=== PATIENT | female | born 1950 | race Caucasian/White ===

== ENCOUNTER → 2020-08-10 | Outpatient (CLI) | payer MEDICARE, OTHER ==
[~2020-08-10] MED LIST: AZELASTINE205.5 MCG/ NS; Advair Hfa 230-12 GM; Amlodipine Bes2.5 MG PO; BENADRYL25 MG PO; CELE200 PO; CITA20 PO; COMBIVENT RESPIM4 GM; FLONASE ALLERG9.9 ML; Hydrocodone-Ap1 EA23 PO; LOSARTAN-HCTZ1 EACH; METCAR500 PO; OMEP10ER PO; Prilosec Otc20 MG PO; Vitamin B Comple1 EA PO
[2020-08-12 14:07] LABS: CORONAVIRUS (COVID19) CSH-NRL Negative (Negative)
== END ==
LOC: LAB 13:33 → LAB SHORT 13:33
PROVIDERS: Nurse Practitioner Family
DX: J06.9 Acute upper respiratory infection, unspecified (principal); Z20.828 Contact with and (suspected) exposure to other viral communicable diseases
CPT/HCPCS: U0003

== ENCOUNTER → 2021-01-28 | Outpatient (CLI) | payer MEDICARE, OTHER ==
[~2021-01-28] MED LIST changes: +COMBIVENT RESPIM4 G1 INH; +HYDR1TAB94 PO; -LOSARTAN-HCTZ1 EACH; +LOSARTAN-HCTZ1 EACH PO; +TIZA4 PO
[2021-01-29 06:52] LABS: Stool Occult Bld Immuno 1 Positive (NEGATIVE)
== END | disposition home or self-care (01) ==
LOC: LAB 10:45 → LAB SHORT 10:45
PROVIDERS: Internal Medicine
DX: D64.9 Anemia, unspecified (principal)
CPT/HCPCS: 82274

== ENCOUNTER 2021-03-09 07:48 | Day surgery (SDC) | payer MEDICARE, OTHER ==
[~2021-03-09] VITALS: Ht 162.6 cm; Wt 91.5 kg
[~2021-03-09 07:48] MED LIST changes: -COMBIVENT RESPIM4 G1 INH; -HYDR1TAB94 PO; -TIZA4 PO
[2021-03-09] MEDS ORDERED: COMBIVENT RESPIM4 G1 INH (08:29)
[2021-03-09] MEDS ORDERED: TIZA4 PO (08:30)
[2021-03-09] MEDS ORDERED: HYDR1TAB94 PO (08:32)
--- NOTE | 2021-03-09 08:59 | NUR ---
03/09/21 0859 Meeta Ramirezfestus Smith VERBALIZES NO PAIN WITH NO MOVEMENT BUT HAS ARTHRITIS ALL OVER & JUST HAD HIP SURGERY IN 2020.
== END 2021-03-09 10:10 | disposition home or self-care (01) ==
LOC: ORSCSDS 07:48
PROVIDERS: Internal Medicine Gastroenterology
PROC: 0DJD8ZZ Inspection of Lower Intestinal Tract, Via Natural or Artificial Opening Endoscopic (ICD-10-PCS; principal; 2021-03-09 09:00)
PROC: 0DB78ZX Excision of Stomach, Pylorus, Via Natural or Artificial Opening Endoscopic, Diagnostic (ICD-10-PCS; principal; 2021-03-09 09:00)
DX: D50.9 Iron deficiency anemia, unspecified (principal); K21.9 Gastro-esophageal reflux disease without esophagitis; Z98.84 Bariatric surgery status; K44.9 Diaphragmatic hernia without obstruction or gangrene; K57.30 Diverticulosis of large intestine without perforation or abscess without bleeding; K64.1 Second degree hemorrhoids; I10 Essential (primary) hypertension; J45.909 Unspecified asthma, uncomplicated; Z79.899 Other long term (current) drug therapy
CPT/HCPCS: 88305; 88342; J2704; J7120

== ENCOUNTER → 2024-08-20 | Outpatient (CLI) | payer MEDICARE, OTHER ==
[~2024-08-20] MED LIST changes: +COMBIVENT RESPIM4 G1 INH; +HYDR1TAB94 PO; +TIZA4 PO
== END | disposition home or self-care (01) ==
LOC: LAB SHORT 14:08 → LAB 14:08
DX: N39.0 Urinary tract infection, site not specified (principal)
CPT/HCPCS: 87086

== ENCOUNTER 2024-09-30 11:30 | Day surgery (SDC) | payer MEDICARE, OTHER ==
[~2024-09-30] VITALS: Ht 162.6 cm; Wt 93.7 kg
[~2024-09-30 11:30] MED LIST changes: +Balanced Salt Epinephrine Irrigation Solution 500 mL IR SCH; +Lidocaine HCl/Pf 1% 5 ML VIAL XX SCH; +Moxifloxacin HCL 0.5 MG/0.1 ML 0.4MLSYR LEFTEYE SCH; +PHENYLEPHRINE\\TROPICAMIDE\\TETRACAINE OPHTHALMIC DILATING SOLN LEFTEYE PRN; +Povidone-Iodine 450 DROP/30 ML Solution LEFTEYE SCH; +Povidone-Iodine 450 DROP/30 ML Solution ONE; +Tetracaine HCl/Pf 0.5% Opth Soln 4 ml ONE
[2024-09-30] MEDS ORDERED: Diazepam 5 MG Tab ONE (11:44)
[2024-09-30] MEDS ORDERED: Diazepam 2 MG Tab ONE (11:44)
--- NOTE | 2024-09-30 12:08 | NUR ---
09/30/24 1208 Dora Jalloh CALL LIGHT WITHIN REACH. TETRACAINE LEFT EYE AT 1157 AND PLEDGET IN AT 1158. VALIUM 7MG PO GIVEN TO PATIEN AT 1158. PT IS NOW IN CONTINOUS PULSE OXIMETER FOR CLOSER OBSERVATION.
[2024-09-30 13:21] VITALS: BP 131/83
--- NOTE | 2024-09-30 13:38 | NUR ---
09/30/24 1338 NIALL HAIRSTON RN, PARTICIPATED IN PT CARE.
== END 2024-09-30 13:35 | disposition home or self-care (01) ==
LOC: ORSCSDS 11:30
PROVIDERS: Student in an Organized Health Care Education/Training Program
PROC: 08RK3JZ Replacement of Left Lens with Synthetic Substitute, Percutaneous Approach (ICD-10-PCS; principal; 2024-09-30 13:00)
DX: E11.36 Type 2 diabetes mellitus with diabetic cataract (principal); H25.813 Combined forms of age-related cataract, bilateral; H35.3130 Nonexudative age-related macular degeneration, bilateral, stage unspecified; E11.319 Type 2 diabetes mellitus with unspecified diabetic retinopathy without macular edema; I10 Essential (primary) hypertension; E78.00 Pure hypercholesterolemia, unspecified; G47.33 Obstructive sleep apnea (adult) (pediatric); Z79.899 Other long term (current) drug therapy
CPT/HCPCS: A9270; V2632

== ENCOUNTER 2024-10-07 11:43 | Day surgery (SDC) | payer MEDICARE, OTHER ==
[~2024-10-07] VITALS: Ht 162.6 cm; Wt 94.4 kg
[~2024-10-07 11:43] MED LIST changes: -Moxifloxacin HCL 0.5 MG/0.1 ML 0.4MLSYR LEFTEYE SCH; +Moxifloxacin HCL 0.5 MG/0.1 ML 0.4MLSYR RIGHTEYE SCH; -PHENYLEPHRINE\\TROPICAMIDE\\TETRACAINE OPHTHALMIC DILATING SOLN LEFTEYE PRN; +PHENYLEPHRINE\\TROPICAMIDE\\TETRACAINE OPHTHALMIC DILATING SOLN RIGHTEYE PRN; -Povidone-Iodine 450 DROP/30 ML Solution LEFTEYE SCH; +Povidone-Iodine 450 DROP/30 ML Solution RIGHTEYE SCH
[2024-10-07] MEDS ORDERED: Diazepam 2 MG Tab ONE (11:47)
[2024-10-07] MEDS ORDERED: Diazepam 5 MG Tab ONE (11:48)
[2024-10-07] MEDS ORDERED: SERT100 PO (12:07)
[2024-10-07] MEDS ORDERED: ROSUVASTATIN CAL5 MG PO (12:08)
[2024-10-07] MEDS ORDERED: Feosol45 MG (12:08)
[2024-10-07] MEDS ORDERED: Pepcid40 MG (12:09)
--- NOTE | 2024-10-07 12:48 | NUR ---
10/07/24 1248 Sally Gilliland ANXIETY ASSESSED .
[2024-10-07 13:19] VITALS: BP 124/78
== END 2024-10-07 13:21 | disposition home or self-care (01) ==
LOC: ORSCSDS 11:43
PROVIDERS: Student in an Organized Health Care Education/Training Program
PROC: 08RJ3JZ Replacement of Right Lens with Synthetic Substitute, Percutaneous Approach (ICD-10-PCS; principal; 2024-10-07 13:00)
DX: E11.36 Type 2 diabetes mellitus with diabetic cataract (principal); H25.811 Combined forms of age-related cataract, right eye; I10 Essential (primary) hypertension; E78.5 Hyperlipidemia, unspecified; G47.33 Obstructive sleep apnea (adult) (pediatric); K21.9 Gastro-esophageal reflux disease without esophagitis; E78.00 Pure hypercholesterolemia, unspecified; G47.30 Sleep apnea, unspecified; Z98.84 Bariatric surgery status; H35.30 Unspecified macular degeneration; E66.9 Obesity, unspecified; Z68.35 Body mass index [BMI] 35.0-35.9, adult; Z79.899 Other long term (current) drug therapy
CPT/HCPCS: A9270; V2632

== ENCOUNTER 2025-05-26 12:21 | Emergency (ER) | payer MEDICARE, OTHER ==
[~2025-05-26] VITALS: Ht 162.6 cm; Wt 90.7 kg
[~2025-05-26 12:21] MED LIST changes: -Balanced Salt Epinephrine Irrigation Solution 500 mL IR SCH; +Feosol45 MG; -Lidocaine HCl/Pf 1% 5 ML VIAL XX SCH; -Moxifloxacin HCL 0.5 MG/0.1 ML 0.4MLSYR RIGHTEYE SCH; -PHENYLEPHRINE\\TROPICAMIDE\\TETRACAINE OPHTHALMIC DILATING SOLN RIGHTEYE PRN; +Pepcid40 MG; -Povidone-Iodine 450 DROP/30 ML Solution ONE; -Povidone-Iodine 450 DROP/30 ML Solution RIGHTEYE SCH; +ROSUVASTATIN CAL5 MG PO; +SERT100 PO; -Tetracaine HCl/Pf 0.5% Opth Soln 4 ml ONE
[2025-05-26 12:23] VITALS: BP 150/77
[2025-05-26] MEDS ORDERED: HYDROcodone 5-APAP 325 TAB PO ONE (15:05)
[2025-05-26] MEDS ORDERED: Percocet 5-3251 EACH PO (16:03)
== END 2025-05-26 16:15 | disposition home or self-care (01) ==
LOC: ER 12:21
DX: S02.31XA Fracture of orbital floor, right side, initial encounter for closed fracture (principal); S52.601A Unspecified fracture of lower end of right ulna, initial encounter for closed fracture; S01.111A Laceration without foreign body of right eyelid and periocular area, initial encounter; W18.30XA Fall on same level, unspecified, initial encounter; Z79.899 Other long term (current) drug therapy; Z88.0 Allergy status to penicillin; Z88.1 Allergy status to other antibiotic agents; Z88.5 Allergy status to narcotic agent; Z88.8 Allergy status to other drugs, medicaments and biological substances
CPT/HCPCS: 12011; 70480; 73080; 73110; 90471; 90715; 99284-25; A9270